=== PATIENT | female | born 1975 ===

== ENCOUNTER 2019-03-26 05:34 | Day surgery (SDC) | payer BC ==
[~2019-03-26 05:34] MED LIST: Buffered Lidocaine 1% SYRIN* 1 ML/SYRINGE INTRADERM ONE
[2019-03-26] MEDS ORDERED: oxyCODONE TAB* 5 MG TAB PO PRN (05:52)
[2019-03-26] MEDS ORDERED: DiMENhydriNATE IV* 50 MG/ML VIAL IV PUSH PRN (05:52)
[2019-03-26] MEDS ORDERED: PROCHLORPERAZINE INJ 5 MG/ML 2 ML VIAL IV PRN (05:52)
[2019-03-26] MEDS ORDERED: fentaNYL* 50 MCG/ML 2 ML VIAL (100 MCG VIAL) IV PRN (05:52)
[2019-03-26] MEDS ORDERED: HYDROmorphone INJ1* 1 MG/ML SYRINGE IV PRN (05:52)
[2019-03-26] MEDS ORDERED: Scopolamine 1.5 mg* PATCH TRANSDERM PRN (05:52)
[2019-03-26] MEDS ORDERED: Naloxone* 0.4 MG/ML 1 ML VIAL IV PRN (05:52)
[2019-03-26] MEDS ORDERED: Famotidine IV* 10 MG/ML 2 ML (20 mg) IV ONE (06:00)
[2019-03-26] MEDS ORDERED: Dexamethasone TAB* 4 MG PO ONE (06:00)
[2019-03-26] MEDS ORDERED: Lactated Ringers 1000 ML Bag* 1,000 ML IV SCH (06:00)
[2019-03-26] MEDS ORDERED: Ondansetron ODT TAB* 4 MG PO ONE (06:00)
[2019-03-26] MEDS ORDERED: Buffered Lidocaine 1% SYRIN* 1 ML/SYRINGE INTRADERM ONE (06:07)
[2019-03-26] MEDS ORDERED: Dexamethasone TAB* 4 MG ONE (06:07)
[2019-03-26] MEDS ORDERED: Ondansetron INJ* 2 MG/ML VIAL ONE (06:07)
[2019-03-26] MEDS ORDERED: Famotidine IV* 10 MG/ML 2 ML (20 mg) ONE (06:07)
[2019-03-26] MEDS ORDERED: Ondansetron ODT TAB* 4 MG ONE (06:26)
[2019-03-26] MEDS ORDERED: fentaNYL* 50 MCG/ML 2 ML VIAL (100 MCG VIAL) ONE (07:25)
[2019-03-26] MEDS ORDERED: KETAMINE HCL* 50 MG/ML 10 ML VIAL ONE (07:25)
[2019-03-26] MEDS ORDERED: Midazolam* 1 MG/ML 2 ML VIAL (2 MG) ONE (07:25)
[2019-03-26] MEDS ORDERED: PROCHLORPERAZINE INJ 5 MG/ML 2 ML VIAL ONE (08:04)
[2019-03-26] MEDS ORDERED: Ketorolac INJ* 30 MG/ML 1 ML VIAL ONE (08:04)
[2019-03-26] MEDS ORDERED: Acetaminophen IV 1GM/100ML * 100 ML ONE (08:04)
[2019-03-26] MEDS ORDERED: Phenylephrine 40 MCG/ML SYRINGE ONE (08:04)
[2019-03-26] MEDS ORDERED: Lidocaine 2% PF * 5 ML VIAL ONE (08:04)
[2019-03-26] MEDS ORDERED: Propofol* 10 MG/ML 20 ML BTL ONE (08:04)
[2019-03-26 09:33] VITALS: BP 122/70
--- NOTE | 2019-03-26 09:46 | OP ---
CC: [facility] * DATE OF PROCEDURE: 03/26/19 - [facility] DATE OF : 77 SURGEON: Dr. Mckeon. ANESTHESIOLOGIST: Dr. Morales. ANESTHESIA: General endotracheal anesthesia. PRE-OP DIAGNOSIS: Menorrhagia. POST-OP DIAGNOSIS: Menorrhagia. PROCEDURE: Dilation, hysteroscopy, MyoSure myomectomy, curettage, and NovaSure ablation. FINDINGS: Midline uterus. No adnexal masses palpated. The uterus sounds to 9. The cavity length was 5, the cavity width was 4.1. There was a 2 cm submucosal fibroid. Both tubal ostia were visualized. COMPLICATIONS: None. Sponge, lap, and needle count were correct x2 and the patient was brought to the recovery room awake and in stable condition. DESCRIPTION OF PROCEDURE: The patient was brought to the operating room. When general anesthesia was found to be adequate, the patient was prepped and draped in the usual sterile fashion in the dorsal lithotomy position. Time-out was performed. Urine was confirmed to be negative. Exam under anesthesia was performed. The weighted speculum was placed in the vagina. The anterior lip of the cervix was grasped with the single-tooth tenaculum and the cervix was gently and easily dilated with a graduated dilators. The uterus sounded to 9. The cavity length was 5. The hysteroscope was introduced. A submucosal fibroid was noted at the fundus. The MyoSure REACH was used to remove the submucous fibroid in its entirety. Curettage was then performed. Then, a NovaSure ablation was performed. The hysteroscope was reintroduced. An excellent ablation was noted throughout. All instruments were removed from the vagina. The anterior lip of the cervix was hemostatic after the removal of the single-tooth tenaculum. The patient was brought to the recovery room awake and in stable condition. The fluid deficit from the MyoSure was 90 cc. [id number]/[facility] #: [id number] [facility]
[2019-03-29] MEDS ORDERED: Scopolamine PATCH Remove* 1 NOTE MISC PATCH OFF ONE (05:53)
== END 2019-03-26 09:59 | disposition home or self-care (01) ==
LOC: OR 05:34
PROVIDERS: ATTEND Obstetrics & Gynecology
DX: N92.0 Excessive and frequent menstruation with regular cycle (principal); Z88.0 Allergy status to penicillin; Z88.1 Allergy status to other antibiotic agents; E78.00 Pure hypercholesterolemia, unspecified; F17.210 Nicotine dependence, cigarettes, uncomplicated
CPT/HCPCS: 81025; 88305; A9270-GY; J0780; J1885; J2250; J2405; J2704; J3010; J8540